=== PATIENT | female | born 1930 | race Caucasian/White ===

== ENCOUNTER 2017-12-08 15:56 | Inpatient (IN) | payer MEDICARE, OTHER, MEDICAID ==
[2017-12-08 16:38] LABS: ADD MAN DIFF? NO
[2017-12-08 16:39] LABS: WHITE BLOOD COUNT 9.1 10^3/ul (4.8-10.8)
[2017-12-08 16:39] LABS: BASOPHIL # 0.1 10^3/ul (0.0-0.1); BASOPHILS % 0.7 % (0.0-2.0); EOSINOPHILS # 0.3 10^3/ul (0.0-0.5); EOSINOPHILS % 3.7 % (0.0-7.0); HEMATOCRIT 37.6 % (37.0-47.0); HEMOGLOBIN 11.8 g/dl (12.0-16.0); LYMPHOCYTES # 2.8 10^3/ul (0.8-2.9); LYMPHOCYTES % 30.9 % (15.0-51.0); MEAN CORPUSCULAR HEMOGLOBIN 27.1 pg (29.0-33.0); MEAN CORPUSCULAR HGB CONC 31.4 g/dl (32.0-37.0); MEAN CORPUSCULAR VOLUME 86.2 fl (82.0-101.0); MEAN PLATELET VOLUME 10.8 fl (7.4-10.4); MONOCYTES % 10.5 % (0.0-11.0); NEUTROPHIL # 4.9 10^3/ul (1.6-7.5); NEUTROPHILS % 53.9 % (39.0-77.0); PLATELET COUNT 256 10^3/UL (140-415); RED BLOOD COUNT 4.36 10^6/ul (4.20-5.40); RED CELL DISTRIBUTION WIDTH 13.7 % (11.5-14.5)
[2017-12-08] MEDS: SOD CHLORIDE 0.9% 1,000 ML IV (16:43)
[2017-12-08 16:54] LABS: INR 0.93; PROTIME 12.5 Sec (11.9-14.9)
[2017-12-08 16:55] LABS: PARTIAL THROMBOPLASTIN TIME 28.7 Sec (23.0-35.0)
[2017-12-08] MEDS: DILTIAZEM 25 MG INJ IV (16:55)
[2017-12-08 16:58] LABS: ALANINE AMINOTRANSFERASE 16 IU/L (13-69); ALBUMIN/GLOBULIN RATIO 1.33; ALKALINE PHOSPHATASE 102 IU/L (42-121); ANION GAP 15 (8-16); ASPARTATE AMINO TRANSFERASE 22 IU/L (15-46); BILIRUBIN,INDIRECT 0.1 mg/dl (0-1.1); BILIRUBIN,TOTAL 0.1 mg/dl (0.2-1.3); BLOOD UREA NITROGEN 15 mg/dl (7-20); CALCIUM 9.1 mg/dl (8.4-10.2); CARBON DIOXIDE 26 mmol/L (21-31); CHLORIDE 105 mmol/L (97-110); CREATINE KINASE 32 IU/L (23-200); CREATININE 0.88 mg/dl (0.44-1.00); GLUCOSE 132 mg/dl (70-220); POTASSIUM 4.1 mmol/L (3.5-5.1); SODIUM 142 mmol/L (135-144)
[2017-12-08 17:10] LABS: B-TYPE NATRIURETIC PEPTIDE 414 PG/ML (0-450); CK INDEX 0.7; CK-MB < 0.22 ng/ml (0.0-2.4); TROPONIN-I < 0.012 ng/ml (0.000-0.120)
[2017-12-08] MEDS: DILTIAZEM-D5W 125MG/125ML DRIP 125 ML IV (17:50)
[2017-12-08] MEDS: SOD CHLORIDE 0.9% 100 ML (17:52)
[2017-12-08] MEDS: IOHEXOL 100 ML (17:53)
[2017-12-08] MEDS ORDERED: ONDANSETRON 4 MG INJ IV ×2 (18:30→19:00)
[2017-12-08] MEDS ORDERED: ACETAMINOPHEN 325 MG TAB PO ×2 (18:30→19:00)
[2017-12-08] MEDS: SOD CHLORIDE 0.45% 1,000 ML IV (18:36)
[2017-12-08] MEDS ORDERED: NA PHOSPHATE/BIPHOS 133 ML ENEMA PR (19:00)
[2017-12-08] MEDS ORDERED: MAGNESIUM HYDROXIDE 30ML CUP PO (19:00)
[2017-12-08] MEDS ORDERED: DILTIAZEM-D5W 125MG/125ML DRIP 125 ML IV (19:00)
[2017-12-08] MEDS ORDERED: NACL 0.9% 3 ML SYG IV (19:00)
[2017-12-08] MEDS ORDERED: ALBUTEROL/IPRATROPIUM (NEB) 3 ML AMP HHN (19:00)
[2017-12-08] MEDS ORDERED: NITROGLYCERIN (SL) 0.4 MG TAB SL (19:00)
[2017-12-08] MEDS: ASPIRIN (EC) 81 MG TAB PO (19:00)
[2017-12-08] MEDS ORDERED: HYDROCODONE/APAP (5/325) TAB PO (19:00)
[2017-12-08] MEDS ORDERED: DOCUSATE SODIUM 100 MG CAP PO (19:00)
[2017-12-08 19:23] LABS: FREE T4 (FREE THYROXINE) 1.67 ng/dl (0.85-1.93)
[2017-12-08 20:31] LABS: TROPONIN-I < 0.012 ng/ml (0.000-0.120)
[2017-12-08] MEDS: INSULIN ASPART [NOVOLOG] 3 ML PEN SC (21:00)
[2017-12-08] MEDS: ATORVASTATIN 20 MG TAB PO (21:12)
[2017-12-08] MEDS: HEPARIN 5,000 UNIT/0.5 ML VIAL SC (21:16)
[2017-12-09] MEDS: morphine 2 MG INJ IV (00:08)
[2017-12-09] MEDS: hydrALAzine 20 MG INJ IV ×2 (00:08→20:25)
[2017-12-09] MEDS: INSULIN ASPART [NOVOLOG] 3 ML PEN SC ×6 (01:00→20:14)
[2017-12-09 01:01] LABS: ADD UMIC NO; UR ASCORBIC ACID 20 mg/dL (NEGATIVE); UR BILIRUBIN (Dip) NEGATIVE (NEGATIVE); UR BLOOD (Dip) NEGATIVE (NEGATIVE); UR CLARITY CLEAR (CLEAR); UR COLOR STRAW (YELLOW); UR GLUCOSE (Dip) NEGATIVE (NEGATIVE); UR KETONES (Dip) NEGATIVE (NEGATIVE); UR LEUKOCYTE ESTERASE (Dip) NEGATIVE Leu/ul (NEGATIVE); UR NITRITE (Dip) NEGATIVE (NEGATIVE); UR SPECIFIC GRAVITY (Dip) 1.036 (1.003-1.030); UR TOTAL PROTEIN (Dip) NEGATIVE (NEGATIVE); UR UROBILINOGEN (Dip) NEGATIVE (NEGATIVE)
[2017-12-09] MEDS: SOD CHLORIDE 0.45% 1,000 ML IV ×3 (05:03→20:26)
[2017-12-09 06:13] LABS: ADD MAN DIFF? NO
[2017-12-09 06:17] LABS: BASOPHIL # 0.1 10^3/ul (0.0-0.1); BASOPHILS % 0.6 % (0.0-2.0); EOSINOPHILS # 0.4 10^3/ul (0.0-0.5); EOSINOPHILS % 3.6 % (0.0-7.0); HEMATOCRIT 36.1 % (37.0-47.0); HEMOGLOBIN 11.5 g/dl (12.0-16.0); LYMPHOCYTES # 4.3 10^3/ul (0.8-2.9); LYMPHOCYTES % 39.4 % (15.0-51.0); MEAN CORPUSCULAR HEMOGLOBIN 27.2 pg (29.0-33.0); MEAN CORPUSCULAR HGB CONC 31.9 g/dl (32.0-37.0); MEAN CORPUSCULAR VOLUME 85.3 fl (82.0-101.0); MEAN PLATELET VOLUME 11.4 fl (7.4-10.4); MONOCYTE # 1.2 10^3/ul (0.3-0.9); MONOCYTES % 10.5 % (0.0-11.0); NEUTROPHILS % 45.6 % (39.0-77.0); PLATELET COUNT 251 10^3/UL (140-415); RED BLOOD COUNT 4.23 10^6/ul (4.20-5.40); RED CELL DISTRIBUTION WIDTH 13.9 % (11.5-14.5)
[2017-12-09 06:36] LABS: HEMOGLOBIN A1C 5.9 % (0-5.9)
[2017-12-09 06:37] LABS: CHOL/HDL RATIO 2.5 RATIO; HDL CHOLESTEROL 74 mg/dl (33-92); LDL CHOLESTEROL,CALCULATED 94 mg/dl; TRIGLYCERIDES 92 mg/dl (0-149)
[2017-12-09 06:37] LABS: CHOLESTEROL 186 mg/dl (100-200)
[2017-12-09 06:52] LABS: FREE THYROXINE INDEX (Calc) 4.12 ug/ml (0.65-3.89); T3 UPTAKE 36.5 % (23.5-40.5); T4 (THYROXINE) 11.3 ug/dl (5.5-11.0)
[2017-12-09 06:54] LABS: TROPONIN-I 0.064 ng/ml (0.000-0.120)
[2017-12-09 07:06] LABS: THYROID STIMULATING HORMONE 0.685 MIU/L (0.465-4.680)
[2017-12-09 07:28] LABS: ANION GAP 11 (8-16); BLOOD UREA NITROGEN 12 mg/dl (7-20); CALCIUM 8.9 mg/dl (8.4-10.2); CARBON DIOXIDE 25 mmol/L (21-31); CHLORIDE 108 mmol/L (97-110); CREATININE 0.81 mg/dl (0.44-1.00); GLUCOSE 100 mg/dl (70-220); MAGNESIUM 2.5 mg/dl (1.7-2.5); PHOSPHORUS 3.3 mg/dl (2.5-4.9); SODIUM 140 mmol/L (135-144)
[2017-12-09] MEDS: ASPIRIN (EC) 81 MG TAB PO (09:00)
[2017-12-09] MEDS: RANITIDINE 150 MG TAB PO (09:05)
[2017-12-09] MEDS: ASPIRIN 81 MG TAB PO (09:05)
[2017-12-09] MEDS: SPIRONOLACTONE 50 MG TAB PO (09:05)
[2017-12-09] MEDS: METOPROLOL 25 MG TAB PO (09:06)
[2017-12-09] MEDS: HEPARIN 5,000 UNIT/0.5 ML VIAL SC (09:11)
[2017-12-09] MEDS ORDERED: GLUCOSE GEL 15 GRAM TUBE PO ×2 (20:00)
[2017-12-09] MEDS ORDERED: GLUCAGON 1 MG INJ IM (20:00)
[2017-12-09] MEDS ORDERED: DEXTROSE 50% 50 ML SYRINGE IV ×2 (20:00)
[2017-12-09] MEDS ORDERED: GLUCOSE GEL 15 GRAM TUBE BUCCAL (20:00)
[2017-12-09] MEDS: APIXABAN 5 MG TABLET PO (20:25)
[2017-12-09] MEDS: ATORVASTATIN 20 MG TAB PO (20:25)
[2017-12-09] MEDS: LORAZEPAM 2 MG INJ IV (22:19)
[2017-12-10] MEDS: INSULIN ASPART [NOVOLOG] 3 ML PEN SC ×3 (00:21→08:03)
[2017-12-10 05:26] LABS: ADD MAN DIFF? NO
[2017-12-10 05:33] LABS: WHITE BLOOD COUNT 9.4 10^3/ul (4.8-10.8)
[2017-12-10 05:33] LABS: BASOPHIL # 0.1 10^3/ul (0.0-0.1); BASOPHILS % 0.7 % (0.0-2.0); EOSINOPHILS # 0.4 10^3/ul (0.0-0.5); EOSINOPHILS % 3.8 % (0.0-7.0); HEMATOCRIT 33.9 % (37.0-47.0); HEMOGLOBIN 10.8 g/dl (12.0-16.0); LYMPHOCYTES # 2.7 10^3/ul (0.8-2.9); LYMPHOCYTES % 28.3 % (15.0-51.0); MEAN CORPUSCULAR HEMOGLOBIN 26.8 pg (29.0-33.0); MEAN CORPUSCULAR HGB CONC 31.9 g/dl (32.0-37.0); MEAN CORPUSCULAR VOLUME 84.1 fl (82.0-101.0); MONOCYTE # 1.1 10^3/ul (0.3-0.9); MONOCYTES % 11.9 % (0.0-11.0); NEUTROPHIL # 5.2 10^3/ul (1.6-7.5); NEUTROPHILS % 54.9 % (39.0-77.0); PLATELET COUNT 234 10^3/UL (140-415); RED BLOOD COUNT 4.03 10^6/ul (4.20-5.40); RED CELL DISTRIBUTION WIDTH 13.8 % (11.5-14.5)
[2017-12-10 05:49] LABS: ANION GAP 13 (8-16)
[2017-12-10 05:58] LABS: BLOOD UREA NITROGEN 12 mg/dl (7-20); CALCIUM 8.3 mg/dl (8.4-10.2); CARBON DIOXIDE 24 mmol/L (21-31); CHLORIDE 106 mmol/L (97-110); CREATININE 0.83 mg/dl (0.44-1.00); GLUCOSE 86 mg/dl (70-220); POTASSIUM 4.5 mmol/L (3.5-5.1); SODIUM 138 mmol/L (135-144)
[2017-12-10 06:06] LABS: TROPONIN-I 0.049 ng/ml (0.000-0.120)
[2017-12-10] MEDS: METOPROLOL 25 MG TAB PO (08:01)
[2017-12-10] MEDS: RANITIDINE 150 MG TAB PO (08:01)
[2017-12-10] MEDS: APIXABAN 5 MG TABLET PO (08:01)
[2017-12-10] MEDS: SPIRONOLACTONE 50 MG TAB PO (08:03)
[2017-12-10] MEDS: LOSARTAN 50 MG TAB PO (10:15)
[2017-12-10] MEDS: HYDROCHLOROTHIAZIDE 25 MG TAB PO (10:16)
[2017-12-10] MEDS: SOD CHLORIDE 0.45% 1,000 ML IV (10:36)
[2017-12-10] MEDS ORDERED: INSULIN ASPART [NOVOLOG] 3 ML PEN SC (21:00)
== END 2017-12-10 18:05 | disposition home or self-care (01) | DRG 310 ==
LOC: E/R 15:56 → 6WM 12-09 20:31
DX: I48.0 Paroxysmal atrial fibrillation (principal); I10 Essential (primary) hypertension; E03.9 Hypothyroidism, unspecified; E11.9 Type 2 diabetes mellitus without complications; E78.5 Hyperlipidemia, unspecified; Z90.710 Acquired absence of both cervix and uterus
CPT/HCPCS: 36415; 71045; 71275; 80048; 80053; 80061; 81003; 82550; 82553; 82962; 83036; 83735; 83880; 84100; 84436; 84439; 84443; 84479; 84484; 85025; 85610; 85730; 87086; 92610; 93005; 93306; 96361; 96374; 96375; 97161; 97166; 99291-25